=== PATIENT | male | born 1980 | race Caucasian/White ===

== ENCOUNTER 2017-04-10 13:09 | Emergency (ER) | payer SELFPAY ==
[~2017-04-10] VITALS: Ht 170.2 cm; Wt 69.0 kg
[~2017-04-10 13:09] MED LIST: PROT40TA PO; Z.0.NO CURRENT MEDS; ZOFR4TAB3 PO
[2017-04-10 13:15] VITALS: BP 97/54; PULSE 87; RESP 18; TEMP 99.5; O2SAT 98
[2017-04-10] MEDS ORDERED: KETOROLAC TROMETHAMINE 60 MG/2 ML (IM) VIAL IM ONE (13:30)
[2017-04-10] MEDS ORDERED: AMOXICILLIN 875 MG TAB PO ONE (13:30)
[2017-04-10] MEDS ORDERED: MAGICADU2 SWISH-SWAL (13:30)
[2017-04-10] MEDS ORDERED: PRED20 PO (13:30)
[2017-04-10] MEDS ORDERED: DEXAMETHASONE SOD PHOS 20 MG/5 ML VIAL IM ONE (13:30)
[2017-04-10] MEDS ORDERED: AMOX875T PO (13:30)
--- NOTE | 2017-04-10 13:35 | PD ---
HPI Chief Complaint: ENT Complaint Time Seen by Provider: 13:18 Travel History International Travel<30 days: No Contact w/Intl Traveler<30days: No Traveled to known affect area: No History of Present Illness HPI 36-year-old female that presents to the ED for evaluation of sore throat. Patient has had this for 3 days. Difficulty swallowing imaging on saliva secondary to pain. Patient the pain is 10 out of 10. States having fevers chills and congestion. No cough. No sick contacts. No recent travel. Has been taking OTC meds with minimal relief. Hasn't seen anybody for this. Allergy to codeine. Denies any other medical issues. No urinary or bowel movement issues. Pain mostly with swallowing. Able to do it but with pain. PFSH Past Medical History Medical History: Denies Significant Hx Diminished Hearing: No ?: Not Past Surgical History Abdominal Surgery: Yes (HERNIORRHAPHY) Social History Alcohol Use: No (QUIT) Tobacco Use: Yes (1 PPD) Substance Use: Yes (MARIJUANNA) Allergies-Medications (Allergen,Severity, Reaction): Coded Allergies: codeine (Unverified Allergy, Severe, HIVES, 04/10/17) Reported Meds & Prescriptions Reported Meds & Active Scripts Active Magic Mouthwash Adult Liq (Multi-Ingredient Mouthwash/Gargle) 120 Ml Susp 5 Ml SWISH-SWAL ACHS Each 5mL contains: Nystatin 200,000units, Diphenhydramine 4.25mg, Viscous Lidocaine 10mg, Collado syrup 0.8 mL Amoxicillin 875 Mg Tab 875 Mg PO BID 10 Days Prednisone 20 Mg Tab 20 Mg PO BID 5 Days Review of Systems Except as stated in HPI: all other systems reviewed are Neg Physical Exam Narrative GENERAL: Well-nourished, well-developed patient in no apparent distress. SKIN: Warm and dry. HEAD: Atraumatic. Normocephalic. EYES: Pupils equal and round reactive to light and accommodation. No scleral icterus. No injection or drainage. ENT: No nasal bleeding or discharge. Mucous membranes pink and moist. TMs are clear with no sign of infection or perforation with exception of the left TM which is erythematous and bulging. No mastoid tenderness. Ear canals are intact bilaterally. No lymphadenopathy. Nostril mucosa is red and moist with clear mucus noted. No sinus tenderness to palpation noted. Tonsils are enlarged and swelling with the right worse than left erythematous noted.. No ulvua Deviation. Tongue is midline. NECK: Trachea midline. No JVD. No meningeal signs noted CARDIOVASCULAR: Regular rate and rhythm. RESPIRATORY: No accessory muscle use. Clear to auscultation. Breath sounds equal bilaterally. GASTROINTESTINAL: Abdomen soft, non-tender, nondistended. Hepatic and splenic margins not palpable. MUSCULOSKELETAL: Extremities without clubbing, cyanosis, or edema. No obvious deformities. NEUROLOGICAL: Awake and alert. No obvious cranial nerve deficits. Motor grossly within normal limits. Five out of 5 muscle strength in the arms and legs. Normal speech. PSYCHIATRIC: Appropriate mood and affect; insight and judgment normal. Data Data Last Documented VS Vital Signs Date Time Temp Pulse Resp B/P (MAP) Pulse Ox O2 Delivery O2 Flow Rate FiO2 04/10/17 13:15 99.5 87 18 97/54 (68) 98 Orders Orders Dexamethasone Inj (Decadron Inj) (04/10/17 13:30) Ketorolac Inj (Toradol Inj) (04/10/17 13:30) Amoxicillin (Trimox) (04/10/17 13:30) Ed Discharge Order (04/10/17 13:31) [facility] Medical Decision Making Medical Screen Exam Complete: Yes Emergency Medical Condition: Yes Medical Record Reviewed: Yes Differential Diagnosis Pharyngitis versus strep throat versus viral illness Narrative Course 36-year-old male that presents to the ED for evaluation of sore throat. Patient was properly examined and was found to have signs and symptoms very consistent what appears to be pharyngitis with otitis media. Very likely strep throat. We'll treat with amoxicillin, penicillin and Magic mouth wash. Patient was given injections here of Toradol and dexamethasone to help with symptoms as well as first dose of the antibiotic here. Told to follow up closely with PCP. See ED worsening symptoms. Fluids encouraged. Diagnosis Primary Impression: Pharyngitis, acute Qualified Codes: J02.9 - Acute pharyngitis, unspecified Patient Instructions: General Instructions Additional Instructions: Motrin and Tylenol for pain and fever. Drink plenty of fluids. Follow-up with PCP. See ED for worsening symptoms. Take ice cream, popsickles, ice water to help with symptoms. Avoid OJ, spicy or hot drinks which will make symptoms a lot worst. Med/Other Pt SpecificInfo: Prescription(s) given Scripts Hywdadxs-Xkfokzxgkxaptbg-Ddnmatwhh Liq (Magic Mouthwash Adult Liq) 120 Ml Susp 5 ML SWISH-SWAL ACHS for Mouth sores, #120 ML 0 Refills Each 5mL contains: Nystatin 200,000units, Diphenhydramine 4.25mg, Viscous Lidocaine 10mg, Collado syrup 0.8 mL Prov: Joselyn Ornelas MD 04/10/17 Amoxicillin (Amoxicillin) 875 Mg Tab 875 MG PO BID for Infection for 10 Days, #20 TAB 0 Refills Prov: Joselyn Ornelas MD 04/10/17 Prednisone (Prednisone) 20 Mg Tab 20 MG PO BID for 5 Days, #10 TAB 0 Refills Prov: Joselyn Ornelas MD 04/10/17 Disposition: 01 DISCHARGE HOME Condition: Stable Wilian Alarcon Apr 10, 2017 13:35
== END 2017-04-10 14:21 | disposition home or self-care (01) ==
LOC: PHEFT 13:09
DX: J02.9 Acute pharyngitis, unspecified (principal); F17.200 Nicotine dependence, unspecified, uncomplicated; F12.90 Cannabis use, unspecified, uncomplicated
CPT/HCPCS: 96372; 99283; J1100; J1885